=== PATIENT | male | born 1990 | race Two or more races ===

== ENCOUNTER 2021-03-12 11:58 | Emergency (ER) | payer OTHER ==
[~2021-03-12] VITALS: Ht 180.3 cm; Wt 86.4 kg
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
[2021-03-12] MEDS ORDERED: LIDOCAINE-MPF 1%, 5ML ONE ×2 (12:45→12:46)
[2021-03-12] MEDS ORDERED: LIDOCAINE 1%, 10ML INFIL ONE (13:00)
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
--- NOTE | 2021-03-12 14:11 | NUR ---
MEAL BREAK RN: Pt given d/c instructions with stated understanding of these. New face mask provided as pt's was bloody. Pt and his friends walked to d/c desk.
[2021-03-12 14:14] VITALS: BP 113/60
== END 2021-03-12 14:16 | disposition home or self-care (01) ==
LOC: ED 12:25
DX: S01.511A Laceration without foreign body of lip, initial encounter (principal); W21.02XA Struck by soccer ball, initial encounter; Y93.66 Activity, soccer; Y92.322 Soccer field as the place of occurrence of the external cause; Y99.8 Other external cause status
CPT/HCPCS: 12051; 99284